=== PATIENT | female | born 1960 | race Caucasian/White ===

== ENCOUNTER 2016-07-10 00:47 | Emergency (ER) | payer OTHER ==
[~2016-07-10] VITALS: Ht 170.2 cm; Wt 72.6 kg
[2016-07-10 01:53] VITALS: BP 126/63
== END 2016-07-10 01:30 | disposition admitted as inpatient to this hospital (09) ==
LOC: ERH 00:47
DX: R07.9 Chest pain, unspecified (principal)
CPT/HCPCS: 93005; 93010; 99281